=== PATIENT | female | born 1945 | race Caucasian/White ===

== ENCOUNTER → 2018-02-26 11:43 | Outpatient (CLI) | payer MEDICARE, SELFPAY ==
--- NOTE | 2018-02-26 | DI.MG.S_ITS ---
BILATERAL DIGITAL SCREENING MAMMOGRAM 3D/2D WITH CAD POST LUMPECTOMY: 02/26/2018 CLINICAL: Routine screening. Personal history of left breast cancer. Comparison is made to exams dated: 02/18/2016 mammogram, 12/11/2012 mammogram, and 11/13/2011 mammogram - [facility]. The tissue of both breasts is heterogeneously dense. This may lower the sensitivity of mammography. Current study was also evaluated with a Computer Aided Detection (CAD) system. There are post operative findings in the left breast. No significant masses, calcifications, or other findings are seen in either breast. There has been no significant interval change. IMPRESSION: NEGATIVE There is no mammographic evidence of malignancy. A 1 year screening mammogram is recommended. This exam was interpreted at Station ID: [id number]. NOTE: For mammograms, a report in lay terms will be sent to the patient. Approximately 15% of breast malignancies will not be visualized mammographically. In the management of a palpable breast mass, a negative mammogram must not discourage biopsy of a clinically suspicious lesion. Electronically Signed By: Rosy liu/terese:02/26/2018 14:03:38 letter sent: Normal Exam ACR BI-RADS Category 1: Negative 3341F
== END ==
PROVIDERS: Family Provider Physician Assistant; PCP Physician Assistant; Visit Provider Physician Assistant
DX: Z12.31 Encounter for screening mammogram for malignant neoplasm of breast (principal); Z85.3 Personal history of malignant neoplasm of breast
CPT/HCPCS: 77063; 77067

== ENCOUNTER → 2018-04-02 15:09 | Outpatient (CLI) | payer MEDICARE, SELFPAY | PROVIDERS: Family Provider Physician Assistant; PCP Physician Assistant; Visit Provider Physician Assistant | DX: M85.88 Other specified disorders of bone density and structure, other site (principal); Z78.0 Asymptomatic menopausal state; Z85.3 Personal history of malignant neoplasm of breast; Z82.62 Family history of osteoporosis | CPT/HCPCS: 77080 ==

== ENCOUNTER → 2018-04-26 06:41 | Outpatient (CLI) | payer MEDICARE, SELFPAY ==
[2018-04-26 09:31] LABS: Vitamin D 25 Hydroxy (D3) 112 ng/mL (30.0-100.0)
[2018-05-01 13:14] LABS: Apolipoprotein B 102 mg/dL (49-103); Cholesterol, Total 252 mg/dL (<200); HDL Cholesterol 97 mg/dL (>50); Lipoprotein (a) 121 nmol/L (<75); Non- HDL Cholesterol 155 (<130); Triglycerides 73 mg/dL (<150)
== END ==
PROVIDERS: PCP Physician Assistant; Visit Provider Physician Assistant
DX: E78.5 Hyperlipidemia, unspecified (principal); E55.9 Vitamin D deficiency, unspecified; M85.80 Other specified disorders of bone density and structure, unspecified site
CPT/HCPCS: 36415; 82306; 83695

== ENCOUNTER → 2018-10-03 10:35 | Outpatient (CLI) | payer MEDICARE, SELFPAY ==
[2018-10-03 15:13] LABS: Vitamin D 25 Hydroxy (D3) 71.5 ng/mL (30.0-100.0)
== END ==
PROVIDERS: PCP Physician Assistant; Visit Provider Physician Assistant
DX: M85.80 Other specified disorders of bone density and structure, unspecified site (principal)
CPT/HCPCS: 36415; 82306

== ENCOUNTER → 2019-02-27 10:02 | Outpatient (CLI) | payer MEDICARE, OTHER, SELFPAY ==
--- NOTE | 2019-02-27 | DI.MG.S_ITS ---
BILATERAL DIGITAL SCREENING MAMMOGRAM 3D/2D WITH CAD POST LUMPECTOMY: 02/27/2019 CLINICAL: Routine screening. Personal history of left breast cancer. Comparison is made to exams dated: 02/26/2018 mammogram, 02/18/2016 mammogram, 12/11/2012 mammogram, 11/13/2011 mammogram, and 10/21/2010 mammogram - [facility]. The tissue of both breasts is heterogeneously dense. This may lower the sensitivity of mammography. Current study was also evaluated with a Computer Aided Detection (CAD) system. There are benign post operative findings in both breasts. There are circular mole markers and linear scar markers on both breasts. No significant masses, calcifications, or other findings are seen in either breast. There has been no significant interval change. IMPRESSION: There is no mammographic evidence of malignancy. A 1 year screening mammogram is recommended. This exam was interpreted at Station ID: [id number]. NOTE: For mammograms, a report in lay terms will be sent to the patient. Approximately 15% of breast malignancies will not be visualized mammographically. In the management of a palpable breast mass, a negative mammogram must not discourage biopsy of a clinically suspicious lesion. Electronically Signed By: Ru Prescott M.D. ecl/:02/27/2019 14:28:05 letter sent: Normal Exam ACR BI-RADS Category 2: Benign Finding(s) 3342F
== END ==
PROVIDERS: Family Provider Physician Assistant; PCP Physician Assistant; Visit Provider Physician Assistant
DX: Z12.31 Encounter for screening mammogram for malignant neoplasm of breast (principal); Z85.3 Personal history of malignant neoplasm of breast
CPT/HCPCS: 77063; 77067

== ENCOUNTER → 2019-07-01 07:11 | Outpatient (CLI) | payer MEDICARE, OTHER, SELFPAY ==
[2019-07-01 08:58] LABS: Vitamin D 25 Hydroxy (D3) 76.4 ng/mL (30.0-100.0)
[2019-07-05 20:35] LABS: Apolipoprotein B 132 mg/dL (<90); Cholesterol, Total 319 mg/dL (<200); HDL Cholesterol 104 mg/dL (>50); Lipoprotein (a) 154 nmol/L (<75); Non- HDL Cholesterol 215 (<130); Triglycerides 74 mg/dL (<150)
== END ==
PROVIDERS: PCP Physician Assistant; Visit Provider Physician Assistant
DX: E78.5 Hyperlipidemia, unspecified (principal); M81.0 Age-related osteoporosis without current pathological fracture
CPT/HCPCS: 36415; 82306; 83695

== ENCOUNTER 2019-10-21 08:29 | Day surgery (SDC) | payer MEDICARE, BC, SELFPAY ==
[2019-10-21] MEDS: PROPARACAINE 0.5% OPHTH SOL 2 DROPS EYE-OP (09:33)
[2019-10-21] MEDS: CATARACT EYE COMPOUND (10 DROPS/SYRINGE) 3 DROPS EYE-OP (09:34)
[2019-10-21 09:36] VITALS: BP 127/67; PULSE 72; RESP 16; TEMP 36.3; O2SAT 100
[2019-10-21 09:37] VITALS: BP 127/67; PULSE 72; RESP 16; TEMP 36.3; O2SAT 100; BMI 18.5
--- NOTE | 2019-10-21 10:10 | PM.PREOP ---
Pre-operative Note Interval Note History & Physical reviewed/Exam performed by Physician: No Changes to H&P: No
--- NOTE | 2019-10-21 10:10 | PM.OP.1 ---
Operative Date/Time/Diagnoses Pre-op diagnosis: Nuclear cataract right eye Procedure & Clinicians Procedure: Cataract Surgery Same procedure as scheduled: Yes Surgeon: Brandon Dixon Anesthesia Type: MAC +/- and Sedation Operative Notes Procedure in detail: Patient brought to the operating suite. Tetracaine drops placed in the right eye. Marking instrument was used to scooter the vertical and horizontal meridians. Patient was prepped and draped in sterile manner. Wire lid speculum was placed in the eye. Marking instrument was used to scooter 45 degree meridian. Betadine drops were placed on the eye. This was irrigated. Lidocaine jelly was placed on the eye. A paracentesis port was created with a side-port blade. 0.1 mL 1% preservative free lidocaine was injected into the anterior chamber. The anterior chamber was deepened with viscoelastic. 2.6 mm keratome was used to create a temporal clear corneal incision. Cystotome and Utrata forceps were used to create continuous tear capsulorrhexis. Balanced salt solution was used to hydro dissect the nucleus. The phacoemulsification handpiece was inserted and the nucleus was removed using the stop and chop technique. The irrigation aspiration handpiece was inserted and the remaining cortex was removed. Anterior chamber was deepened with viscoelastic. An Astudillo [id number] intraocular lens with a power of 23.0 was injected into the capsular bag. Irrigation aspiration handpiece was inserted and the remaining viscoelastic was removed. The lens was rotated to the 45 degree meridian. Incision was hydrated with balanced salt solution and found to be leak free with pressure with Weck-Venus sponges. 0.1 mL Vigamox injected anterior chamber. 0.3 mL Kenalog 10 mg was injected subconjunctivally. Lid speculum was removed. The patient left the operating room in excellent condition. Complications: none Post-operative Condition: stable Disposition: same day surgery
[2019-10-21] MEDS: MOXIFLOXACIN INJ 5 MG/ML VIAL EYE-OP (10:29)
[2019-10-21] MEDS: TRIAMCINOLONE 50 MG/5 ML VIAL INJ (10:29)
[2019-10-21] MEDS: PHENYLEPHRINE/LIDOCAINE VIAL (OR) 0.2 ML EYE-OP (10:29)
[2019-10-21] MEDS: BALANCED SALT IRRIG SOLN NO.2 500 ML, EPINEPHrine 1 MG IRR (10:30)
[2019-10-21] MEDS: LIDOCAINE JELLY 2% 5 ML 1 APPLIC TOP (10:30)
[2019-10-21] MEDS: TETRACAINE 0.5% OPHTH DROPS 4 ML 2 DROPS EYE-OP (10:30)
[2019-10-21] MEDS: CHONDROIDTIN/SOD HYALURONATE 1.05 ML SYRINGE INTRAOCULA (10:30)
[2019-10-21 10:44] VITALS: BP 98/63; PULSE 65; RESP 15; TEMP 36; O2SAT 99
[2019-10-21 10:55] VITALS: BP 101/56
== END 2019-10-21 10:56 | disposition home or self-care (01) ==
PROVIDERS: PCP Physician Assistant; Visit Provider Ophthalmology
PROC: (CPT 66984; principal; 2019-10-21 10:15)
DX: H25.11 Age-related nuclear cataract, right eye (principal)
CPT/HCPCS: 66984; J0171; J2250; J3010; J3301; V2787

== ENCOUNTER 2019-11-04 08:05 | Day surgery (SDC) | payer MEDICARE, BC, SELFPAY ==
[2019-11-04] MEDS: PROPARACAINE 0.5% OPHTH SOL 2 DROPS EYE-OP (08:34)
[2019-11-04] MEDS: CATARACT EYE COMPOUND (10 DROPS/SYRINGE) 3 DROPS EYE-OP (08:38)
[2019-11-04 08:39] VITALS: BP 106/67; PULSE 77; RESP 16; TEMP 36.4; O2SAT 97
--- NOTE | 2019-11-04 09:19 | PM.PREOP ---
Pre-operative Note Interval Note History & Physical reviewed/Exam performed by Physician: No Changes to H&P: No
--- NOTE | 2019-11-04 09:20 | PM.OP.1 ---
Operative Date/Time/Diagnoses Pre-op diagnosis: Nuclear Cataract Left eye Post-op diagnosis: same Procedure & Clinicians Same procedure as scheduled: Yes Surgeon: Brandon Dixon Anesthesia Type: MAC +/- and Sedation Operative Notes Procedure in detail: Patient brought to the operating suite. Tetracaine drops placed in the left eye. Marking instrument was used to scooter the vertical and horizontal meridians. Patient was prepped and draped in sterile manner. Wire lid speculum was placed in the eye. Marking instrument was used to scooter the 140 degree meridian. Betadine drops were placed on the eye. This was irrigated. Lidocaine jelly was placed on the eye. A paracentesis port was created with a side-port blade. 0.1 mL 1% preservative free lidocaine was injected into the anterior chamber. The anterior chamber was deepened with viscoelastic. 2.6 mm keratome was used to create a temporal clear corneal incision. Cystotome and Utrata forceps were used to create continuous tear capsulorrhexis. Balanced salt solution was used to hydro dissect the nucleus. The phacoemulsification handpiece was inserted and the nucleus was removed using the stop and chop technique. The irrigation aspiration handpiece was inserted and the remaining cortex was removed. Anterior chamber was deepened with viscoelastic. An Astudillo [id number] intraocular lens with a power of 22.5 was injected into the capsular bag. Irrigation aspiration handpiece was inserted and the remaining viscoelastic was removed. The lens was rotated to the 140 degree meridian. Incision was hydrated with balanced salt solution and found to be leak free with pressure with Weck-Venus sponges. 0.1 mL Vigamox injected anterior chamber. 0.3 mL Kenalog 10 mg was injected subconjunctivally. Lid speculum was removed. The patient left the operating room in excellent condition. Complications: none Post-operative Condition: stable Disposition: same day surgery
--- NOTE | 2019-11-04 09:33 | SUR.OPER ---
Supine on eye stretcher, head on extension cradle secured with tape. Arms tucked at sides with blanket. Pillow under knees.
[2019-11-04] MEDS: PHENYLEPHRINE/LIDOCAINE VIAL (OR) 0.2 ML EYE-OP (09:36)
[2019-11-04] MEDS: MOXIFLOXACIN INJ 5 MG/ML VIAL EYE-OP (09:36)
[2019-11-04] MEDS: TETRACAINE 0.5% OPHTH DROPS 4 ML 2 DROPS EYE-OP (09:37)
[2019-11-04] MEDS: CHONDROIDTIN/SOD HYALURONATE 1.05 ML SYRINGE INTRAOCULA (09:37)
[2019-11-04] MEDS: LIDOCAINE JELLY 2% 5 ML 1 APPLIC TOP (09:37)
[2019-11-04] MEDS: TRIAMCINOLONE 50 MG/5 ML VIAL INJ (09:37)
[2019-11-04] MEDS: BALANCED SALT IRRIG SOLN NO.2 500 ML, EPINEPHrine 1 MG IRR (09:38)
[2019-11-04 10:02] VITALS: BP 111/72; PULSE 68; RESP 14; TEMP 36.6; O2SAT 97
== END 2019-11-04 10:05 | disposition home or self-care (01) ==
LOC: OR 08:09
PROVIDERS: Visit Provider Ophthalmology
PROC: (CPT 66984; principal; 2019-11-04 09:45)
DX: H25.12 Age-related nuclear cataract, left eye (principal)
CPT/HCPCS: 66984; J0171; J2250; J3010; J3301; V2787

== ENCOUNTER → 2020-03-05 11:38 | Outpatient (CLI) | payer MEDICARE, BC, SELFPAY ==
--- NOTE | 2020-03-05 11:44 | DI.CT.S_ITS ---
PROCEDURE: CT CHEST WO CON INDICATIONS: groundglass opacity, left lung TECHNIQUE: Noncontrast 5 mm thick sections acquired from the pulmonary apices to the posterior costophrenic angles. 1 mm lung window, 5 mm thick coronal and sagittal and 7 mm axial MIP reformats were then acquired. For radiation dose reduction, the following was used: automated exposure control, adjustment of mA and/or kV according to patient size. COMPARISON: [facility], CHEST 2 VIEW, 10/04/2011, 8:48. [facility], CHEST 2 VIEW, 11/23/2017, 11:22. FINDINGS: Image quality: Excellent. Lungs and pleura: No definite acute air space opacities but there are several likely chronic nodular opacities within the lungs. Note is made of mild peripheral pulmonary and pleural scarring over the apices. Within the posterior right lower lobe at the mid chest level seen on series 3 image 134 there is a 8 x 11 mm subsolid radiodensity, abutting the pleural surface. A slight degree of nodular alveolar radiodensity is found within the anterior left upper lobe (centered on image 138) but a discrete mass in this area is not present. A small 4 mm nodular radiodensity is seen near by, image 155. At the posterior left lower lobe there is a calcified radiodensity in the deep posterior costophrenic sulcus seen on image 251.. No pleural effusions or pneumothorax. Central and peripheral airways are patent and normal in caliber. Mediastinum: Heart size is normal. No pericardial effusion. No mediastinal adenopathy by size criteria. Thoracic aorta and central pulmonary arteries are normal in size. Esophagus is normal in caliber. No hiatal hernia. Bones and chest wall: No suspicious bony lesions. No vertebral body compression fractures. No axillary or supraclavicular adenopathy by size criteria. Thyroid gland is not well-seen by this noncontrast technique. Abdomen: Visualized upper abdominal solid organs and bowel loops appear normal in the absence of contrast. IMPRESSION: Clinical history provided appears to suggest that a outside CT scan may be available for review. If so it should be obtained and an addendum report to this study can be generated without benefit. Old granulomatous disease may explain the findings present bilaterally, including the densely calcified granuloma at the posterior left lung base at the low margin of the hemithorax. Based on [employer] criteria for followup of pulmonary nodules the subsolid 8 x 11 mm radiodensity at the posterior right midlung warrants followup noncontrast CT scan in 6 months. Further followup recommendations will be generated if outside comparison CT scan becomes available for review. Dictated by: Tye Cordova M.D. on 03/05/2020 at 12:09 Approved by: Tye Cordova M.D. on 03/05/2020 at 12:17
== END ==
PROVIDERS: PCP Nurse Practitioner Family; Referring Provider Nurse Practitioner Family; Visit Provider Nurse Practitioner Family
DX: J84.10 Pulmonary fibrosis, unspecified (principal); R91.8 Other nonspecific abnormal finding of lung field; Z85.3 Personal history of malignant neoplasm of breast
CPT/HCPCS: 71250

== ENCOUNTER → 2020-04-16 06:56 | Outpatient (CLI) | payer MEDICARE, BC, SELFPAY ==
[2020-04-16 08:06] LABS: Hematocrit 38.6 % (36-46); Hemoglobin 12.9 g/dL (12.0-16.0); Mean Corpuscular HGB Conc 33.5 % (30-36); Mean Corpuscular Hemoglobin 30.6 PG (26-34); Mean Corpuscular Volume 91.4 fL (80-100); Platelet Count 244 X10^3/uL (150-400); Red Blood Cell Count 4.22 X10^6/uL (4.0-5.2); Red Cell Distribution Width 13.9 % (11.6-14.8); White Blood Cell Count 4.4 X10^3/uL (4.5-11.0)
[2020-04-16 08:39] LABS: Alanine Aminotransferase 18 IU/L (<35); Albumin 4.3 g/dL (3.5-5.0); Albumin Globulin Ratio 1.8 (1.0-2.8); Alkaline Phosphatase 40 U/L (38-126); Aspartate Aminotransferase 27 IU/L (14-36); BUN Creatinine Ratio 22.9 (6-22); Bilirubin Total 0.5 mg/dL (0.2-1.3); Blood Urea Nitrogen 22 mg/dL (7-17); Calcium 9.8 mg/dL (8.4-10.2); Carbon Dioxide 28 mmol/L (22-32); Chloride 105 mmol/L (98-107); Cholesterol 268 mg/dL (140-199); Estimated Glomerular Filt Rate 56.5 mL/min (>60); Globulin 2.4 g/dL (1.7-4.1); Glucose 85 mg/dL (80-110); HDL Cholesterol 109 mg/dL (40-60); HEMOLYSIS < 15 (0-50); LDL Cholesterol Calculated 144 mg/dL (<100); Potassium 4.5 mmol/L (3.4-5.1); Sodium 138 mmol/L (137-145); Total Protein 6.7 g/dL (6.3-8.2); Triglycerides 76 mg/dL (35-150)
[2020-04-16 09:41] LABS: Vitamin B12 927 pg/mL (239-931)
[2020-04-16 10:09] LABS: Folate > 20.0 ng/mL (2.76-20.0)
== END ==
PROVIDERS: PCP Nurse Practitioner Family; Referring Provider Nurse Practitioner Family; Visit Provider Nurse Practitioner Family
DX: M85.80 Other specified disorders of bone density and structure, unspecified site (principal); R53.83 Other fatigue; E78.2 Mixed hyperlipidemia
CPT/HCPCS: 36415; 80053; 80061; 82607; 82746; 85027

== ENCOUNTER → 2020-04-24 11:25 | Outpatient (CLI) | payer MEDICARE, BC, SELFPAY ==
--- NOTE | 2020-04-24 11:26 | DI.MG.S_ITS ---
BILATERAL DIGITAL SCREENING MAMMOGRAM 3D/2D WITH CAD POST LUMPECTOMY: 04/24/2020 CLINICAL: Routine screening. Breast cancer. Comparison is made to exams dated: 02/27/2019 mammogram, 02/26/2018 mammogram, and 02/18/2016 mammogram - [facility]. The tissue of both breasts is heterogeneously dense. This may lower the sensitivity of mammography. Current study was also evaluated with a Computer Aided Detection (CAD) system. There are benign post operative findings and biopsy clip in the right breast. There also are benign post operative findings in the left breast. No significant masses, calcifications, or other findings are seen in either breast. There has been no significant interval change. IMPRESSION: There is no mammographic evidence of malignancy. A 1 year screening mammogram is recommended. This exam was interpreted at Station ID: [id number]. NOTE: For mammograms, a report in lay terms will be sent to the patient. Approximately 15% of breast malignancies will not be visualized mammographically. In the management of a palpable breast mass, a negative mammogram must not discourage biopsy of a clinically suspicious lesion. Electronically Signed By: Sarah bui/terese:04/26/2020 09:12:49 letter sent: Normal Exam ACR BI-RADS Category 2: Benign Finding(s) 3342F
== END ==
PROVIDERS: PCP Nurse Practitioner Family; Referring Provider Nurse Practitioner Family; Visit Provider Nurse Practitioner Family
DX: Z12.31 Encounter for screening mammogram for malignant neoplasm of breast (principal); Z85.3 Personal history of malignant neoplasm of breast
CPT/HCPCS: 77063; 77067

== ENCOUNTER → 2020-09-22 06:53 | Outpatient (CLI) | payer MEDICARE, BC, SELFPAY ==
[2020-09-22 08:15] LABS: BUN Creatinine Ratio 29.2 (6-22); Blood Urea Nitrogen 26 mg/dL (7-17); Calcium 9.1 mg/dL (8.4-10.2); Carbon Dioxide 31 mmol/L (22-32); Chloride 104 mmol/L (98-107); Cholesterol 251 mg/dL (140-199); Estimated Glomerular Filt Rate > 60.0 mL/min (>60); Glucose 85 mg/dL (80-110); HDL Cholesterol 109 mg/dL (40-60); HEMOLYSIS < 15 (0-50); LDL Cholesterol Calculated 131 mg/dL (<100); Potassium 4.4 mmol/L (3.4-5.1); Sodium 138 mmol/L (137-145); Triglycerides 54 mg/dL (35-150)
== END ==
PROVIDERS: PCP Nurse Practitioner Family; Referring Provider Nurse Practitioner Family; Visit Provider Nurse Practitioner Family
DX: R94.4 Abnormal results of kidney function studies (principal); E78.5 Hyperlipidemia, unspecified
CPT/HCPCS: 36415; 80048; 80061

== ENCOUNTER → 2021-04-29 08:21 | Outpatient (CLI) | payer MEDICARE, OTHER, SELFPAY ==
--- NOTE | 2021-04-29 08:25 | DI.MG.S_ITS ---
BILATERAL DIGITAL SCREENING MAMMOGRAM 3D/2D WITH CAD: 04/29/2021 CLINICAL: Routine screening. Personal history of left breast cancer. Comparison is made to exams dated: 04/24/2020 mammogram, 02/27/2019 mammogram, and 02/26/2018 mammogram - [facility]. The tissue of both breasts is heterogeneously dense. This may lower the sensitivity of mammography. Current study was also evaluated with a Computer Aided Detection (CAD) system. There are benign post operative findings and biopsy clip in the right breast. There also are benign post operative findings in the left breast. No significant masses, calcifications, or other findings are seen in either breast. There has been no significant interval change. IMPRESSION: BENIGN There is no mammographic evidence of malignancy. A 1 year screening mammogram is recommended. This exam was interpreted at Station ID: [id number]. NOTE: For mammograms, a report in lay terms will be sent to the patient. Approximately 15% of breast malignancies will not be visualized mammographically. In the management of a palpable breast mass, a negative mammogram must not discourage biopsy of a clinically suspicious lesion. Electronically Signed By: Jose Martin fontaine/terese:04/29/2021 09:46:35 letter sent: Normal Exam ACR BI-RADS Category 2: Benign Finding(s) 3342F
== END ==
PROVIDERS: PCP Nurse Practitioner Family; Referring Provider Nurse Practitioner Family; Visit Provider Nurse Practitioner Family
DX: Z12.31 Encounter for screening mammogram for malignant neoplasm of breast (principal); Z85.3 Personal history of malignant neoplasm of breast
CPT/HCPCS: 77063; 77067

== ENCOUNTER → 2022-05-10 07:22 | Outpatient (CLI) | payer MEDICARE, OTHER, SELFPAY ==
--- NOTE | 2022-05-10 | DI.MG.S_ITS ---
BILATERAL DIGITAL SCREENING MAMMOGRAM 3D/2D WITH CAD POST LUMPECTOMY: 05/10/2022 CLINICAL: Routine screening. Personal history of left breast cancer. Comparison is made to exams dated: 04/24/2020 mammogram, 04/29/2021 mammogram, and 02/27/2019 mammogram - [facility]. The tissue of both breasts is heterogeneously dense. This may lower the sensitivity of mammography. Current study was also evaluated with a Computer Aided Detection (CAD) system. There are benign post operative findings in both breasts. No significant masses, calcifications, or other findings are seen in either breast. There has been no significant interval change. IMPRESSION: BENIGN There is no mammographic evidence of malignancy. A 1 year screening mammogram is recommended. This exam was interpreted at Station ID: [id number]. NOTE: For mammograms, a report in lay terms will be sent to the patient. Approximately 15% of breast malignancies will not be visualized mammographically. In the management of a palpable breast mass, a negative mammogram must not discourage biopsy of a clinically suspicious lesion. Electronically Signed By: Lewis champion/terese:05/10/2022 08:21:42 letter sent: Normal Exam ACR BI-RADS Category 2: Benign Finding(s) 3342F
== END ==
PROVIDERS: PCP Nurse Practitioner; Referring Provider Nurse Practitioner; Visit Provider Nurse Practitioner
DX: Z12.31 Encounter for screening mammogram for malignant neoplasm of breast (principal); Z85.3 Personal history of malignant neoplasm of breast
CPT/HCPCS: 77063; 77067

== ENCOUNTER → 2022-09-18 10:12 | Outpatient (CLI) | payer MEDICARE, OTHER, SELFPAY ==
--- NOTE | 2022-09-18 10:15 | DI.RAD.S_ITS ---
PROCEDURE: XR DEXA AXIAL SKELETON INDICATIONS: menopausal, osteopenia COMPARISON: [facility], CR, XR DEXA AXIAL SKELETON, 04/02/2018, 15:47. FINDINGS: This blank DEXA report has been sent in error by the PACS system. The correct and complete report will be forthcoming in 1-2 days. Thank you for your patience and understanding. Dictated by: Zarina Guallpa MD, PhD on 09/19/2022 at 13:18 Approved by: Zarina Guallpa MD, PhD on 09/19/2022 at 13:18
== END ==
PROVIDERS: PCP Nurse Practitioner; Referring Provider Nurse Practitioner; Visit Provider Nurse Practitioner
DX: M81.0 Age-related osteoporosis without current pathological fracture; Z78.0 Asymptomatic menopausal state
CPT/HCPCS: 77080

== ENCOUNTER → 2022-10-05 06:56 | Outpatient (CLI) | payer MEDICARE, OTHER, SELFPAY ==
[2022-10-05 08:39] LABS: Alanine Aminotransferase 22 IU/L (<35); Albumin 4.3 g/dL (3.5-5.0); Albumin Globulin Ratio 1.6 (1.0-2.8); Alkaline Phosphatase 56 U/L (38-126); Aspartate Aminotransferase 28 IU/L (14-36); BUN Creatinine Ratio 24.7 (6-22); Bilirubin Total 0.4 mg/dL (0.2-1.3); Blood Urea Nitrogen 21 mg/dL (7-17); Calcium 9.3 mg/dL (8.4-10.2); Carbon Dioxide 25 mmol/L (22-32); Chloride 103 mmol/L (98-107); Estimated Glomerular Filt Rate > 60 mL/min (>60); Globulin 2.7 g/dL (1.7-4.1); Glucose 89 mg/dL (80-110); HEMOLYSIS < 15 (0-50); Potassium 4.3 mmol/L (3.4-5.1); Sodium 138 mmol/L (137-145); Triglycerides 67 mg/dL (35-150)
[2022-10-05 09:00] LABS: Cholesterol 388 mg/dL (140-199); HDL Cholesterol 146 mg/dL (40-60); LDL Cholesterol Calculated 229 mg/dL (<100)
[2022-10-05 17:28] LABS: Hep C Virus Ab w/Reflex Quant NEGATIVE s/c (NEGATIVE)
== END ==
PROVIDERS: PCP Nurse Practitioner; Referring Provider Nurse Practitioner; Visit Provider Nurse Practitioner
DX: E78.5 Hyperlipidemia, unspecified (principal); R94.4 Abnormal results of kidney function studies; Z11.59 Encounter for screening for other viral diseases
CPT/HCPCS: 36415; 80053; 80061; 86803

== ENCOUNTER → 2022-10-06 09:09 | Outpatient (CLI) | payer MEDICARE, OTHER, SELFPAY ==
--- NOTE | 2022-10-06 09:13 | DI.CT.S_ITS ---
PROCEDURE: CT CHEST WO CON INDICATIONS: Lung abnormality TECHNIQUE: Noncontrast 5 mm thick sections acquired from the pulmonary apices to the posterior costophrenic angles. 1 mm lung window, 5 mm thick coronal and sagittal and 7 mm axial MIP reformats were then acquired. For radiation dose reduction, the following was used: automated exposure control, adjustment of mA and/or kV according to patient size. COMPARISON: [facility], CT, CT CHEST WO CON, 03/05/2020, 11:42. FINDINGS: Image quality: Excellent. Lungs and pleura: Unchanged subpleural right lower lobe subsolid pulmonary nodule. By my measurements, on previous image 134/3 it measured 7 x 10 mm. And current image 137/3 it measures 8 x 9 mm. Stable chronic posterior a pickle pleural thickening on the right. Stable mild thickening along the peripheral aspect of the major fissure on the right. No new or increasing pulmonary nodules. Relatively symmetric biapical pleuroparenchymal scarring. Cephalad retraction of the bilateral rosy, suggesting possible chronic granulomatous disease. No acute air space opacities. No pleural effusions or pneumothorax. Central and peripheral airways are patent and normal in caliber. Mediastinum: Heart size is normal. No pericardial effusion. No mediastinal adenopathy by size criteria. Thoracic aorta and central pulmonary arteries are normal in size. Esophagus is normal in caliber. No hiatal hernia. Bones and chest wall: No suspicious bony lesions. No vertebral body compression fractures. No axillary or supraclavicular adenopathy by size criteria. Thyroid gland is grossly unremarkable. Abdomen: Tiny nonobstructing left upper pole renal stone. Visualized upper abdominal solid organs and bowel loops otherwise appear normal in the absence of contrast. IMPRESSION: 1. The peripheral subsolid nodular density in the right lower lobe is stable times greater than 2 years, and is consistent with a benign lesion. 2. Findings suggesting chronic granulomatous disease. 3. No findings suspicious for malignancy or acute pulmonary process. Dictated by: Chuck Geiger M.D. on 10/06/2022 at 13:43 Approved by: Chuck Geiger M.D. on 10/06/2022 at 14:18
== END ==
PROVIDERS: PCP Nurse Practitioner; Referring Provider Nurse Practitioner; Visit Provider Nurse Practitioner
DX: J84.10 Pulmonary fibrosis, unspecified (principal); J45.909 Unspecified asthma, uncomplicated; J98.4 Other disorders of lung; R91.1 Solitary pulmonary nodule
CPT/HCPCS: 71250

== ENCOUNTER → 2023-05-22 08:15 | Outpatient (CLI) | payer MEDICARE, OTHER, SELFPAY ==
--- NOTE | 2023-05-22 | DI.MG.S_ITS ---
BILATERAL DIGITAL SCREENING MAMMOGRAM 3D/2D WITH CAD: 05/22/2023 CLINICAL: Routine screening. Breast cancer. Comparison is made to exams dated: 05/10/2022 mammogram, 04/29/2021 mammogram, 04/24/2020 mammogram, 02/27/2019 mammogram, and 02/26/2018 mammogram - [facility]. Both breasts are heterogeneously dense, which may obscure small masses (category c / 51-75% glandular tissue). Current study was also evaluated with a Computer Aided Detection (CAD) system. There are benign post operative findings in both breasts. No significant masses, calcifications, or other findings are seen in either breast. There has been no significant interval change. IMPRESSION: BENIGN There is no mammographic evidence of malignancy. A 1 year screening mammogram is recommended. This exam was interpreted at Station ID: [id number]. NOTE: For mammograms, a report in lay terms will be sent to the patient. Approximately 15% of breast malignancies will not be visualized mammographically. In the management of a palpable breast mass, a negative mammogram must not discourage biopsy of a clinically suspicious lesion. Electronically Signed By: Ravi lim/terese:05/22/2023 09:14:36 letter sent: Normal Exam ACR BI-RADS Category 2: Benign Finding(s) 3342F
== END ==
PROVIDERS: PCP Nurse Practitioner; Referring Provider Nurse Practitioner; Visit Provider Nurse Practitioner
DX: Z12.31 Encounter for screening mammogram for malignant neoplasm of breast (principal); Z85.3 Personal history of malignant neoplasm of breast
CPT/HCPCS: 77063; 77067

== ENCOUNTER → 2023-11-14 06:41 | Outpatient (CLI) | payer MEDICARE, OTHER, SELFPAY ==
[2023-11-14 08:45] LABS: Cholesterol 256 mg/dL (140-199); HDL Cholesterol 95 mg/dL (40-60); LDL Cholesterol Calculated 140 mg/dL (<100); Triglycerides 107 mg/dL (35-150)
== END ==
LOC: LAB 06:42
PROVIDERS: PCP Nurse Practitioner; Referring Provider Nurse Practitioner; Visit Provider Nurse Practitioner
DX: E78.5 Hyperlipidemia, unspecified (principal); Z79.899 Other long term (current) drug therapy
CPT/HCPCS: 36415; 80061

== ENCOUNTER → 2024-06-05 08:13 | Outpatient (CLI) | payer MEDICARE, OTHER, SELFPAY ==
--- NOTE | 2024-06-05 08:15 | DI.MG.S_ITS ---
BILATERAL DIGITAL SCREENING MAMMOGRAM 3D/2D WITH CAD: 06/05/2024 CLINICAL: Routine screening. Personal history of left breast cancer. Comparison is made to exams dated: 05/22/2023 mammogram, 05/10/2022 mammogram, and 04/29/2021 mammogram - [facility]. Both breasts are heterogeneously dense, which may obscure small masses (category c / 51-75% glandular tissue). Current study was also evaluated with a Computer Aided Detection (CAD) system. There are benign post operative findings in both breasts. No significant masses, calcifications, or other findings are seen in either breast. There has been no significant interval change. IMPRESSION: BENIGN There is no mammographic evidence of malignancy. A 1 year screening mammogram is recommended. This exam was interpreted at Station ID: [id number]. NOTE: For mammograms, a report in lay terms will be sent to the patient. Approximately 15% of breast malignancies will not be visualized mammographically. In the management of a palpable breast mass, a negative mammogram must not discourage biopsy of a clinically suspicious lesion. Electronically Signed By: Ravi lim/terese:06/05/2024 10:08:27 letter sent: Normal Exam ACR BI-RADS Category 2: Benign Finding(s) 3342F
== END ==
PROVIDERS: PCP Nurse Practitioner; Referring Provider Internal Medicine; Visit Provider Internal Medicine
DX: Z12.31 Encounter for screening mammogram for malignant neoplasm of breast (principal); Z85.3 Personal history of malignant neoplasm of breast; R92.333 Mammographic heterogeneous density, bilateral breasts
CPT/HCPCS: 77063; 77067

== ENCOUNTER 2024-09-12 13:46 | Day surgery (SDC) | payer MEDICARE, OTHER, SELFPAY ==
--- NOTE | 2024-09-12 | PATH_ITS ---
[facility] Accession Number: [id number] No. of containers..01 Tissue . 01 Material submitted: . sigmoid colon - SIGMOID POLYP . 01 Diagnosis: SIGMOID POLYP: Hyperplastic polyp. STO 09/17/2024 1500 Local . 01 Electronically signed: . Anival Jane MD, Pathologist NPI- [id number] . 01 Gross description: . Received in formalin with two patient identifiers and sigmoid polyp biopsy:, is a single arora soft tissue fragment, 0.5 cm in greatest dimension, submitted in A1. ([id number]) /MRV 09/17/2024 1500 Local . 01 Pathologist provided ICD-10: K63.5 . 01 CPT . 409217 Specimen Comment: A courtesy copy of this report has been sent to [phone] Performed at: [address] [facility] [id number] MD Anival Jane MD Phone: [phone]
[2024-09-12 14:33] VITALS: BP 104/58; PULSE 77; RESP 16; TEMP 36.6; O2SAT 99
--- NOTE | 2024-09-12 15:03 | PM.HP.1 ---
History of Present Illness History of Present Illness Date Patient Seen: 09/12/24 Time Patient Seen: 15:03 Chief complaint: Colonoscopy Narrative: 79-year-old woman with a personal history of colonic polyps here for screening colonoscopy. Last colonoscopy 5 years ago. No family history of colon cancer. No abdominal concerns today. 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) Fatigue (2017) Surgical History Status post bunionectomy Status post breast lumpectomy Family History Mother Hypertension Social History household members: spouse Smoking Status: Never smoker second hand exposure: No alcohol intake: former substance use type: does not use Meds Home Medications and Allergies Home Medications Medication Instructions Recorded Confirmed Type aspirin 81 mg tablet,delayed 81 mg PO 2XW 11/04/19 09/12/24 History release (Gerald Low Dose Aspirin) cholecalciferol (vitamin D3) 125 5,000 unit PO 2XW 02/27/20 11/29/22 History mcg (5,000 unit) capsule Berberine Plus 1000mg 2 cap PO BID 12/12/23 History Bone Stim Liquescence See Rx Instructions .Route .COMPLEX 12/12/23 12/12/23 History Bone Up Capsule See Rx Instructions .Route .COMPLEX 12/12/23 History Brain Elevate 1 cap PO .QD 12/12/23 History Calcium D Glucarate 500 mg PO .QD 12/12/23 12/12/23 History Cell Guard 1 cap PO .QD 12/12/23 12/12/23 History DHEA 10 mg PO .QD 12/12/23 History LipoGuard 1 cap PO BID 12/12/23 History Multi Thymus 1 cap PO QAM 12/12/23 History Perma Guard 2 cap PO QAM 12/12/23 History Pure Ultra Nutrient 1 cap PO QAM 12/12/23 12/12/23 History Saccharomyces Boulardii 2 cap PO QAM 12/12/23 12/12/23 History ascorbic acid (vitamin C) 1,000 mg 1 g PO BID 12/12/23 09/12/24 History capsule astaxanthin 10 mg PO .QD 12/12/23 12/12/23 History female balance liquesence See Rx Instructions PO .COMPLEX 12/12/23 History vitamin K 2 cap PO .QWK 12/12/23 History sodium,potassium,mag sulfates 17.5 See Rx Instructions PO .COMPLEX 08/21/24 Rx gram-3.13 gram-1.6 gram oral soln #354 mL (Suprep Bowel Prep Kit) Allergies Allergy/AdvReac Type Severity Reaction Status Date / Time codeine [CODEINE] AdvReac Mild GI UPSET Verified 09/12/24 14:29 Exam Vital Signs (past 8 hours): - 09/12/24 14:33 Temperature 97.9 F Pulse Rate 77 Respiratory Rate 16 Blood Pressure 104/58 L Pulse Oximetry 99 Oxygen Delivery Method Room Air Oxygen Delivery Method Room Air Narrative Exam Narrative: General adult woman alert oriented no acute distress Chest nonlabored respiration Extremities warm well perfused Assessment & Plan Assessment and plan (1) History of colon polyps: Problem details: Hyperplastic polyps on 2019 colonoscopy Status: Chronic Assessment & Plan narrative: The patient requires colorectal screening and colonoscopy is recommended. Technical details were discussed. Risks, benefits, alternatives explained. Risks including but not limited to myocardial infarction, aspiration, bleeding, pain, missed lesion, incomplete examination, need for further radiographic studies, intestinal injury, and need for major abdominal surgery were discussed. All questions were answered to their satisfaction, and they are in agreement with this plan. Time-Based Coding :: [TOTAL MINUTES] spent with patient and on the chart (including review of chart, obtaining history, exam, reviewing outside data, placing orders, documenting exam and treatment plan, and counseling patient) on [DATE].
[2024-09-12 15:34] VITALS: BP 107/66; PULSE 64; RESP 20; TEMP 36.6; O2SAT 97
--- NOTE | 2024-09-12 15:36 | P.OP.COLON_ITS ---
Operative Date/Time/Diagnoses Date of procedure: 09/12/24 Time of procedure: 15:36 Pre-op diagnosis: Personal history of colonic polyps Post-op diagnosis: other (Colonic polyp x1) Procedure & Clinicians Study performed: Screening colonoscopy and polypectomy Same procedure as scheduled: Yes Indications: Personal history of colonic polyps Surgeon: Viktor Reynoso Procedure Notes Procedure in detail: The history and physical was performed/updated and the patient is ASA class is 2. The procedure was discussed in detail with the patient. Potential risks complications including infection, bleeding, missed diagnosis, perforation, need for surgery, and were explained. Their questions were answered and informed consent was obtained. Patient was brought to the procedure room and placed standard monitoring equipment. The patient's vital signs were monitored continuously throughout the entire procedure. Prior to starting time-out was performed. The patient was placed in the left lateral recumbent position. Procedural sedation was administered by anesthesia. Examination began with a thorough inspection of the perianal area there was no evidence of fissures, fistulae, external hemorrhoids or cutaneous malignancy. The colonoscopy scope was then placed into the anal canal and was advanced to the cecum, which was identified by the ileocecal valve, the appendiceal orifice and the confluence of the taenia. The scope was then slowly withdrawn examining colon thoroughly in all directions, irrigating it of any residual stool. The scope was retroflexed within the rectum The patient tolerated the procedure well. They will be discharged once criteria are met. The prep was of good/excellent quality. The withdrawl time was 7 minutes. FINDINGS * Sigmoid colonic polyp 3 mm removed with biopsy forceps Specimen(s): other (Sigmoid colon polyp) Impression: Colonic polyp Post-procedure Plan for aftercare: No need for further colonoscopy Disposition: same day surgery
[2024-09-12 15:39] VITALS: BP 108/59; PULSE 63; RESP 17; O2SAT 97
[2024-09-12 15:44] VITALS: BP 105/57; PULSE 69; RESP 15; TEMP 36.7; O2SAT 97
[2024-09-12 15:48] VITALS: BP 118/65; PULSE 66; RESP 13; O2SAT 98
== END 2024-09-12 16:11 | disposition home or self-care (01) ==
PROVIDERS: PCP Internal Medicine; Referring Provider Surgery; Visit Provider Surgery
PROC: 0DJD8ZZ Inspection of Lower Intestinal Tract, Via Natural or Artificial Opening Endoscopic (ICD-10-PCS; CPT 45378; principal; 2024-09-12 15:00)
DX: Z12.11 Encounter for screening for malignant neoplasm of colon (principal); Z86.0100 Personal history of colon polyps, unspecified; K63.5 Polyp of colon
CPT/HCPCS: 45380; J2704

== ENCOUNTER → 2025-01-28 15:11 | Outpatient (CLI) | payer MEDICARE, OTHER, SELFPAY ==
--- NOTE | 2025-01-28 15:13 | DI.RAD.S_ITS ---
PROCEDURE: XR DEXA AXIAL SKELETON INDICATIONS: OSTEOPOROSIS COMPARISON: [facility], CR, XR DEXA AXIAL SKELETON, 09/18/2022, 10:38. [facility], CR, XR DEXA AXIAL SKELETON, 04/02/2018, 15:47. FINDINGS: Lumbar Spine: L1-L4. Bone mineral density 0.801 g/cm2, T score -2.2. Left Femoral Neck: Bone mineral density 0.560 g/cm2, T score -2.6. Left Hip: Bone mineral density 0.716 g/cm2, T score -1.8. Right Femoral Neck: Bone mineral density 0.575 g/cm2, T score -2.5. Right Hip: Bone mineral density 0.751 g/cm2, T score -1.6. Left Forearm: Bone mineral density 0.534 g/cm2, T score -2.7. Fracture Risk Calculation (when applicable): 10-year fracture risk of a major osteoporotic fracture 16 percent and of a hip fracture 6.0 percent. (T score greater or equal to -1.0 to: NORMAL) (T score from -1.1 to -2.4: OSTEOPENIA) (T score less than or equal to -2.5: OSTEOPOROSIS) IMPRESSION: Osteoporosis. Follow-up guidelines as follows: Osteoporosis: Consider a repeat DEXA and Vertebral Fracture Assessment (VFA) exam in 2 years or sooner if medically necessary, to reassess this patient's status. Osteopenia: Consider a repeat DEXA in 2-3 years to reassess this patient's status, or if there is a new clinical indication. Normal: Consider a repeat DEXA in 5 years or sooner, or if there is a new clinical indication. All treatment decisions require clinical judgment and consideration of individual patient factors, including patient preferences, comorbidities, previous drug use, risk factors not captured in the FRAX model (e.g., frailty, falls, vitamin D deficiency, increased bone turnover, interval significant decline in bone density ) and possible under- or over-estimation of fracture risk by FRAX. In addition, the NOF Guide recommends that FDA-approved medical therapies be considered in postmenopausal women and men age >= 50 years with a: * Hip or vertebral (clinical or morphometric) fracture * T-score of <=-2.5 at the spine or hip * Ten-year fracture probability by FRAX of >= 3% for hip fracture or >=20% for major osteoporotic fracture. Dictated by: Ravi Ba M.D. on 01/29/2025 at 12:48 Approved by: Ravi Ba M.D. on 01/29/2025 at 12:50
== END ==
PROVIDERS: PCP Internal Medicine; Referring Provider Internal Medicine Endocrinology, Diabetes & Metabolism; Visit Provider Internal Medicine Endocrinology, Diabetes & Metabolism
DX: M81.0 Age-related osteoporosis without current pathological fracture (principal)
CPT/HCPCS: 77080